=== PATIENT | female | born 1990 | race Caucasian/White ===

== ENCOUNTER 2020-07-14 20:20 | Emergency (ER) | payer OTHER ==
[~2020-07-14] VITALS: Ht 175.3 cm; Wt 62.9 kg
--- NOTE | 2020-07-14 20:24 | PHYS DOC ---
General Adult HPI: HPI: " I feel like maybe I have a UTI... it lopez when I urinate.. Patient is a 30 year old female who presents with above hx and complaints of dysuria. Patient denies any vaginal discharge. Patient denies any risk of STD. Patient denies any specific history immunosuppression. No recent travel. No specific ill contacts. Patient is normally healthy. Pt. follows with Dr. Carreon. Review of Systems: Review of Systems: Constitutional: Denies fever or chills Eyes: Denies change in visual acuity HENT: Denies nasal congestion or sore throat Respiratory: Denies cough or shortness of breath Cardiovascular: Denies chest pain or edema GI: Denies abdominal pain, nausea, vomiting, bloody stools or diarrhea : Complains of dysuria Musculoskeletal: Denies back pain or joint pain Integument: Denies rash Neurologic: Denies headache, focal weakness or sensory changes Endocrine: Denies polyuria or polydipsia Lymphatic: Denies swollen glands Psychiatric: Denies depression or anxiety Family History: Family History: Noncontributory to presentation Current Medications: Current Meds: See nursing for home meds Allergies: Allergies: No known drug allergies Physical Exam: PE: Constitutional: Well developed, well nourished, moderate acute distress, non- toxic appearance. [] HENT: Normocephalic, atraumatic, bilateral external ears normal, oropharynx moist, no oral exudates, nose normal. [] Eyes: PERRLA, EOMI, conjunctiva normal, no discharge. [] Neck: Normal range of motion, no tenderness, supple, no stridor. [] Cardiovascular:Heart rate regular rhythm, no murmur [] Lungs & Thorax: Bilateral breath sounds clear to auscultation [] Abdomen: Bowel sounds normal, soft, no tenderness, no masses, no pulsatile masses. [] Skin: Warm, dry, no erythema, no rash. [] Back: No tenderness, no CVA tenderness. [] Extremities: No tenderness, no cyanosis, no clubbing, ROM intact, no edema. [] Neurologic: Alert and oriented X 3, normal motor function, normal sensory function, no focal deficits noted. [] Psychologic: Affect anxious, judgement normal, mood normal. [] EKG: EKG: [] Radiology/Procedures: Radiology/Procedures: [] Heart Score: Risk Factors: Risk Factors: DM, Current or recent (<one month) smoker, HTN, HLP, family history of CAD, obesity. Risk Scores: Score 0 - 3: 2.5% MACE over next 6 weeks - Discharge Home Score 4 - 6: 20.3% MACE over next 6 weeks - Admit for Clinical Observation Score 7 - 10: 72.7% MACE over next 6 weeks - Early Invasive Strategies Course & Med Decision Making: Course & Med Decision Making Pertinent Labs and Imaging studies reviewed. (See chart for details) Patient to push vitamin C drinks. Since this may help suppress UTI. Patient take Bactrim DS twice a day. Follow-up urine cultures. Patient warned that her may develop red urine from the Pyridium given here. Patient take Tylenol and ibuprofen for pain. Patient return if any concerns. Impression: 1. UTI/ Dysuria [] Dragon Disclaimer: Dragon Disclaimer: This electronic medical record was generated, in whole or in part, using a voice recognition dictation system. Departure Departure: Referrals: TYREL CARREON (PCP) Scripts Sulfamethoxazole/Trimethoprim (BACTRIM DS TABLET) 1 Each Tablet 1 TAB PO BID for dysuria for 7 Days, #14 TAB 0 Refills Prov: DEMETRIUS ALCANTARA MD 07/14/20 Prabhakar Disclaimer This chart was dictated in whole or in part using Voice Recognition software in a busy, high-work load, and often noisy Emergency Department environment. It may contain unintended and wholly unrecognized errors or omissions. DEMETRIUS ALCANTARA MD Jul 14, 2020 20:24
[2020-07-14 20:35] VITALS: BP 121/68
[2020-07-14 21:03] LABS: BARBITURATES NEG (NEG); BENZODIAZEPINES NEG (NEG); CANNABINOIDS NEG (NEG); COCAINE NEG (NEG); METHADONE NEG (NEG); OPIATES NEG (NEG); PHENCYCLIDINE NEG (NEG)
[2020-07-14 21:05] LABS: AMPHETAMINE/METHAMPHETAMINE NEG (NEG)
[2020-07-14] MEDS ORDERED: SULF1TAB24 PO (21:06)
[2020-07-14] MEDS: PHENAZOPYRIDINE 200 MG TABLET. PO ONE (21:11)
[2020-07-14] MEDS: SMZ/TMP 800/160MG TABLET. PO ONE (21:11)
[2020-07-14] MEDS: IBUPROFEN 400 MG TABLET. PO ONE (21:11)
[2020-07-14 21:26] LABS: BACTERIA,URINE MANY /HPF (0-FEW); BILIRUBIN,URINE NEG (NEG); CLARITY,URINE CLEAR; COLOR,URINE COLORLESS; GLUCOSE,URINE NEG (NEG); NITRITE,URINE NEG (NEG); RBC,URINE >40 /HPF (0-2); UROBILINOGEN,URINE 0.2 mg/dL (0.2 mg/dL); WBC,URINE 20-40 /HPF (0-4)
== END 2020-07-14 21:15 | disposition home or self-care (01) ==
LOC: ER 20:20
DX: N39.0 Urinary tract infection, site not specified (principal); R30.0 Dysuria
CPT/HCPCS: 36415; 80307; 81001; 81025; 87086; 99284

== ENCOUNTER → 2021-08-09 | Outpatient (CLI) | payer OTHER ==
[~2021-08-09] MED LIST: SULF1TAB24 PO
--- NOTE | 2021-08-09 09:49 | RAD ---
EXAMINATION: US OB <14 WKS +TV INDICATION: 31 years, Female, bleeding in early . COMPARISON: None TECHNIQUE: Trans abdominal and transvaginal ultrasound of the pelvis was performed with grayscale, sp ectral, and color doppler imaging. FINDINGS: LMP: 06/16/2021 UTERUS: Position: Retroverted Measures: 6.5 x 3.9 x 2.7 cm. No abnormal cervical thickening. There are multiple benign nabothian cy stsUterine within the cervix Endometrial Morphology: Unremarkable. Endometrial Thickness: Within normal limits. No intrauterine /gestational sac/ pole maria fernanda ntified RIGHT OVARY/ADNEXA: Measures: 4.2 x 2.6 x 1.8 cm. Right Ovarian Morphology: Unremarkable. Right Ovarian Color And Spectral Doppler Flow: Normal. LEFT OVARY/ADNEXA: Measures: 3.5 x 2.4 x 1.7 cm. Left Ovarian Morphology: There is a centrally hypoechoic peripherally iso-/hypoechoic mass adjacent t o the left ovary with increased peripheral vascularity measuring 2.9 x 1.7 x 1.5 cm. Left Ovarian Color And Spectral Doppler Flow: Normal. OTHER: Fluid/Cul-De-Sac: Trace fluid IMPRESSION: No evidence of intrauterine . Peripherally hypervascular mass adjacent to the left ovary is suspicious for ectopic in the setting of a elevated beta hCG. Differential also includes a corpus luteum. Recommend short interval follow-up with serial beta hCGs and [employer]. These findings were discussed with Odalis (Dr. Stallings's nurse) at 08/09/2021 9:[address] Stoll. Electronically signed by: Lincoln Stoll DO (08/09/2021 9:47 AM) [id number]
== END ==
LOC: US 07:43
PROVIDERS: ATTEND Family Medicine
DX: O20.9 Hemorrhage in early pregnancy, unspecified (principal)
CPT/HCPCS: 76801; 76817